=== PATIENT | male | born 1990 | race Caucasian/White ===

== ENCOUNTER 2022-03-15 17:43 | Emergency (ER) | payer OTHER, SELFPAY ==
--- NOTE | 2022-03-15 17:50 | XRR_ITS ---
PROCEDURE INFORMATION: Exam: XR Sacrum and Coccyx, 2 or More Views Exam date and time: 03/15/2022 6:08 PM Age: 31 years old Clinical indication: Pain in coccyx area; Patient HX: Blunt trauma falling xseveral days; Additional info: Tailbone pain TECHNIQUE: Imaging protocol: XR of the sacrum and coccyx, 2 or more views. COMPARISON: No relevant prior studies available. FINDINGS: Bones/joints: Normal. No acute fracture. Soft tissues: Normal. XR/XR sacrum coccyx min 2V [id number] IMPRESSION: No acute findings.
[2022-03-15 18:31] VITALS: BP 124/78; PULSE 84; RESP 16; TEMP 36.7; O2SAT 96; BMI 28.1
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
[2022-03-15 19:17] VITALS: BP 124/78; PULSE 84; RESP 16; TEMP 36.7; O2SAT 96
[2022-03-15] MEDS: HYDROcodone-acetaminophen 7.5-325 mg Tablet 1 TAB PO (19:28)
== END 2022-03-15 19:30 | disposition home or self-care (01) ==
PROVIDERS: Emergency Provider Physician Assistant
DX: S30.0XXA Contusion of lower back and pelvis, initial encounter (principal); W16.622A Jumping or diving into natural body of water striking bottom causing other injury, initial encounter
CPT/HCPCS: 72220; 99283

== ENCOUNTER 2022-05-29 12:03 | Emergency (ER) | payer OTHER, SELFPAY ==
[2022-05-29 12:08] VITALS: BP 145/89; PULSE 61; RESP 18; TEMP 36.7; O2SAT 96; BMI 28.7
--- NOTE | 2022-05-29 12:28 | XRR_ITS ---
PROCEDURE INFORMATION: Exam: XR Right Shoulder Exam date and time: 05/29/2022 12:48 PM Age: 31 years old Clinical indication: Pain; Shoulder; Right; Additional info: Right shoulder pain TECHNIQUE: Imaging protocol: Radiologic exam of the Right shoulder. Views: 2 or more views. COMPARISON: No relevant prior studies available. FINDINGS: Bones/joints: Normal. Soft tissues: Normal. XR/XR shoulder RT min 2V* [id number] IMPRESSION: No acute findings.
--- NOTE | 2022-05-29 12:54 | W.ED.EXTPRO ---
Documented by User: FREDY Urban 05/29/22 13:29 HPI - Extremity Problem General: Chief complaint: Extremity Injury, Upper Stated complaint: hurt shoulder on the right Time Seen by Provider: 05/29/22 12:21 History of Present Illness: Patient is in today for right-sided shoulder pain. He reports that 2 weeks ago his right shoulder started hurting after he had had a crick in his neck on the left side. He reports that he has had no injury, trauma to the right shoulder. He reports that it got better for about a week and a half and now it is hurting to the point that he is nauseated. He reports that it hurts worse when he is standing upright in the arm is dangling down. He reports that when the arm is supported it feels better. Associated symptoms: Deny chest pain or fever(s) Review of Systems Const: Denies: fever(s) or chills Card: Denies: chest pain or palpitations Resp: Denies: dyspnea Musc: Reports: joint pain (Right shoulder) [facility] ED PFSH: Medical History No pertinent family history Surgical History No pertinent past surgical history Physical Exam Const: COMMON NORMALS: no acute distress, patient oriented x3 and alert Resp: COMMON NORMALS: normal respiratory effort and No use of accessory muscles Extremity: OTHER: There is some mild tenderness to palpation glenohumeral joint area on the right shoulder. This does reproduce pain complaint. No obvious bony or soft tissue deformity appreciated. Patient has lateral abduction intact. Patient is able to perform soda can test without eliciting pain. Patient has posterior reach. With arms extended frontal patient is unable to raise arms above shoulder height on the right side without assistance of his other arm. CSM within normal limits to distal right arm. Neuro: COMMON NORMALS: patient oriented x3 SENSORIUM/ORIENTATION: Yes alert Course Vital Signs: Vital signs: Vital Signs Temperature 98.1 F 05/29/22 12:08 Pulse Rate 61 05/29/22 12:08 Respiratory Rate 18 05/29/22 12:08 Blood Pressure 145/89 05/29/22 12:08 Pulse Oximetry 96 05/29/22 12:08 Oxygen Delivery Me thod 05/29/22 12:08 MDM - Extremity (Nontraumatic) Medical Decision Making 31-year-old male with 2-week duration of right shoulder pain without acute injury or trauma. He has not seen a primary care provider. He has not had other evaluation of the shoulder per him. X-ray done. X-ray showed no acute findings. We will encourage patient to follow-up with primary care provider I will send a note to case management to help patient establish primary care provider. Encourage conservative treatment at home including ice, rest, elevation. Gentle pendulum swings. No lifting for the next few days to allow the shoulder to rest. Return to the ER as needed for new or worsening symptoms. Patient is frustrated however agreeable to following with PCP. Patient is requesting narcotic pain medication. Advised him that NSAIDs are more appropriate to help treat this type of musculoskeletal injury. Patient declined Toradol injection at this time Lab Data Radiology Impressions Shoulder X-Ray 05/29/22 12:28 IMPRESSION: No acute findings. Discharge Plan Discharge Patient Disposition: Home Clinical Impression: Right shoulder pain Condition: Stable Prescriptions: No Action ibuprofen 800 mg tablet 800 mg PO Q8H PRN (Reason: pain) Qty: 30 0RF Discharge Orders: Discharge ED (Routine); Ordered 05/29/22 Ordered By: Noemi Coronel Discharge Diet: Usual diet Discharge Activity: Limit activity as instructed Patient Instructions: Shoulder Sprain (ED) Activity Restrictions/Additional Instructions: Your x-rays did not show any acute fractures or injuries to the bones in your shoulder films. I recommend conservative treatment at home including ice the area to help with pain, rest the shoulder which means no lifting for a couple of days. You may use Tylenol Motrin alternating as needed for pain. Follow-up with a primary care provider. I put in an order to case management to help you establish a primary care provider. The primary care provider can help you continue to monitor the shoulder and determine if any further evaluation by specialist is needed at that time. Return to the ER sooner as needed. Stand Alone Forms: Work/School Release Coding Level of Care Code ED Senior Actuarial Analyst for [employer] Exam Expanded Problem Focused Documented by User: Travis Pal DO 05/30/22 07:49 HPI - Extremity Problem General: Chief complaint: Extremity Injury, Upper Stated complaint: hurt shoulder on the right Time Seen by Provider: 05/29/22 12:21 [facility] ED PFSH: Medical History No pertinent family history Surgical History No pertinent past surgical history Course Vital Signs: Vital signs: Vital Signs Temperature 98.1 F 05/29/22 12:08 Pulse Rate 61 05/29/22 12:08 Respiratory Rate 18 05/29/22 12:08 Blood Pressure 145/89 05/29/22 12:08 Pulse Oximetry 96 05/29/22 12:08 Oxygen Delivery Me thod 05/29/22 12:08 MDM - Extremity (Nontraumatic) Medical Decision Making 31-year-old male with 2-week duration of right shoulder pain without acute injury or trauma. He has not seen a primary care provider. He has not had other evaluation of the shoulder per him. X-ray done. X-ray showed no acute findings. We will encourage patient to follow-up with primary care provider I will send a note to case management to help patient establish primary care provider. Encourage conservative treatment at home including ice, rest, elevation. Gentle pendulum swings. No lifting for the next few days to allow the shoulder to rest. Return to the ER as needed for new or worsening symptoms. Patient is frustrated however agreeable to following with PCP. Patient is requesting narcotic pain medication. Advised him that NSAIDs are more appropriate to help treat this type of musculoskeletal injury. Patient declined Toradol injection at this time Chart reviewed and patient discussed with midlevel. Agree with assessment and plan. Lab Data Radiology Impressions Shoulder X-Ray 05/29/22 12:28 IMPRESSION: No acute findings. Discharge Plan Discharge Patient Disposition: Home Clinical Impression: Right shoulder pain Condition: Stable Prescriptions: No Action ibuprofen 800 mg tablet 800 mg PO Q8H PRN (Reason: pain) Qty: 30 0RF Discharge Orders: Discharge ED (Routine); Ordered 11/03/22 Ordered By: Noemi Coronel Discharge Diet: Usual diet Discharge Activity: Limit activity as instructed Patient Instructions: Shoulder Sprain (ED) Activity Restrictions/Additional Instructions: Your x-rays did not show any acute fractures or injuries to the bones in your shoulder films. I recommend conservative treatment at home including ice the area to help with pain, rest the shoulder which means no lifting for a couple of days. You may use Tylenol Motrin alternating as needed for pain. Follow-up with a primary care provider. I put in an order to case management to help you establish a primary care provider. The primary care provider can help you continue to monitor the shoulder and determine if any further evaluation by specialist is needed at that time. Return to the ER sooner as needed. Stand Alone Forms: Work/School Release Coding Level of Care Code ED Senior Actuarial Analyst for [employer] Exam Expanded Problem Focused
--- NOTE | 2022-05-29 15:22 | DCPLANNER ---
manager mechanical had message to speak with patient about getting established with a primary care physician. manager mechanical called phone number [phone], a recording came over the phone and stated that this phone line has been placed out of business. manager mechanical unable to speak with patient or leave a voicemail for patient.
== END 2022-05-29 13:33 | disposition home or self-care (01) ==
PROVIDERS: Emergency Provider Nurse Practitioner Family
DX: M25.511 Pain in right shoulder (principal)
CPT/HCPCS: 73030; 99283

== ENCOUNTER 2023-08-08 09:15 | Emergency (ER) | payer MEDICAID, SELFPAY ==
[2023-08-08 09:41] VITALS: BP 167/113; PULSE 84; RESP 16; TEMP 36.4; O2SAT 97
--- NOTE | 2023-08-08 10:04 | ED_ITS ---
HPI - Dental/Oral General: Chief complaint: Dental/Oral Stated complaint: right side tooth pain Time Seen by Provider: 08/08/23 09:21 History of Present Illness: 32-year-old male presents emergency room with complaint of dental pain in his right posterior mandibular molar has severe pain he had a filling placed and there is very rough and irregular severe sharp pain he did use some Tylenol 3 that the dentist had given him that still causing severe pain he has a follow-up appointment with a dentist. He has not had any fever sweats or chills pain is throbbing but he does not notice any swelling or drainage MD Complaint: tooth pain Associated symptoms: Denies fever(s) Review of Systems Const: Denies: fever(s) or chills Card: Denies: chest pain Resp: Denies: dyspnea GI: Denies: abdominal pain : Denies: dysuria, urinary frequency or urinary urgency Musc: Denies: neck pain or back pain Skin/Breast: Denies: rash PFS ED PFSH: Medical History No pertinent family history Surgical History No pertinent past surgical history Physical Exam Const: COMMON NORMALS: no acute distress GENERAL APPEARANCE: cooperative and comfortable ORIENTATION/CONSCIOUSNESS: Yes awake, Yes oriented to person, Yes oriented to place and Yes oriented to time HENMT: COMMON NORMALS: normocephalic, atraumatic and hearing grossly normal bilaterally HEAD & SCALP: normocephalic and atraumatic OTHER: Right mandibular posterior molar lateral posterior portion of the molar is fractured off. Could not visualize if there is exposed pulp. No gum swelling or drainage Resp: COMMON NORMALS: normal respiratory effort, No retractions, No use of accessory muscles and clear to auscultation bilaterally AUSCULTATION: clear to auscultation bilaterally Cardio: COMMON NORMALS: regular rate, regular rhythm and No murmurs present (Cardio) RATE: regular rate RHYTHM: regular rhythm Extremity: COMMON NORMALS: normal to inspection, capillary refill normal, no clubbing, cyanosis or edema, no calf tenderness and no pedal edema Neuro: SENSORIUM/ORIENTATION: Yes oriented to person, Yes oriented to place and Yes oriented to time Skin: COMMON NORMALS: no rashes or lesions noted GENERAL SKIN EXAM: no rashes or lesions noted Course Vital Signs: Vital signs: Vital Signs Temperature 97.6 F 08/08/23 09:41 Pulse Rate 75 08/08/23 10:15 Respiratory Rate 16 08/08/23 09:41 Blood Pressure 167/113 08/08/23 09:41 Pulse Oximetry 98 08/08/23 10:15 Oxygen Delivery Me thod Room Air 08/08/23 09:41 MDM - Dental/Oral Medical Decision Making On exam is a fracture of the tooth in the area patient is complaining of pain there is no scalp swelling I think the pain is just from pulp exposure there is no sign of abscess no drainage from use of dental wax to protect the pulp. Also given tramadol to use as needed follow-up with dentist for definitive care Medical Records I reviewed the patient's medical records. Lab Data I reviewed the patient's lab results. No radiology studies performed this visit Discharge Plan Discharge Patient Disposition: Home Clinical Impression: Dental caries, Toothache Condition: Stable Prescriptions: New tramadol 50 mg tablet 50 mg PO Q6H PRN (Reason: pain) Qty: 10 0RF No Action ibuprofen 800 mg tablet 800 mg PO Q8H PRN (Reason: pain) Qty: 30 0RF Discharge Orders: Discharge ED (Routine); Ordered 08/08/23 Ordered By: Travis Pal Referrals: Rudolph Thompson MD [Primary Care Provider] - Discharge Diet: Usual diet Discharge Activity: Increase activity as tolerated Patient Instructions: Opioid Safety, Pain Management Activity Restrictions/Additional Instructions: Thank you for choosing [facility] for your healthcare needs today. Please realize this is an emergency room and that we are providing you with a medical screening exam and this may not be complete and all inclusive of all the testing and or work up that you may need to determine your ailment or severity of your illness. It is very important that you follow up as instructed or that you return to the Emergency Department should you have concerns or if your condition changes or worsens in any way. Follow-up with a dentist as soon as you are able. Coding Level of Care Code ED Service Station Attendant for [employer]
[2023-08-08 10:15] VITALS: PULSE 75; O2SAT 98
== END 2023-08-08 10:17 | disposition home or self-care (01) ==
PROVIDERS: Emergency Provider Family Medicine; PCP Family Medicine
DX: K02.9 Dental caries, unspecified (principal); K08.89 Other specified disorders of teeth and supporting structures
CPT/HCPCS: 99283

== ENCOUNTER 2023-10-11 13:21 | Emergency (ER) | payer MEDICAID, SELFPAY ==
[2023-10-11 13:25] VITALS: BP 156/108; PULSE 82; RESP 18; TEMP 36.4; O2SAT 96; BMI 33.7
--- NOTE | 2023-10-11 13:29 | W.ED.DENTAL ---
HPI - Dental/Oral General: Chief complaint: Dental/Oral Stated complaint: tooth pain Time Seen by Provider: 10/11/23 13:26 History of Present Illness: 33-year-old male patient comes in today with left upper jaw pain with pain radiating to the left ear. Patient has some dental problems and is awaiting a root canal which is supposed to be done on the of this month. Patient has been unable to get comfortable and reports difficulty sleeping for the last 3 days. No obvious swelling is noted to the face. Review of Systems General: Reports: 10 or more systems reviewed and unremarkable except in HPI and below ENMT: Reports: dental pain [facility] ED PFSH: Medical History No pertinent family history Surgical History No pertinent past surgical history Physical Exam Const: COMMON NORMALS: alert HENMT: COMMON NORMALS: normocephalic HEAD & SCALP: normocephalic TEETH & GINGIVA: Yes abnormal tooth and associated gingiva (red gingivae, tenderness noted to the molar of the left upper jaw) Neck/C-Spine: COMMON NORMALS: full ROM Resp: COMMON NORMALS: normal respiratory effort Cardio: COMMON NORMALS: regular rate RATE: regular rate Extremity: COMMON NORMALS: normal to inspection Neuro: SENSORIUM/ORIENTATION: Yes alert Skin: COMMON NORMALS: turgor normal GENERAL SKIN EXAM: turgor normal Course Vital Signs: Vital signs: Vital Signs Temperature 97.5 F L 10/11/23 13:25 Pulse Rate 82 10/11/23 13:25 Respiratory Rate 18 10/11/23 13:25 Blood Pressure 156/108 10/11/23 13:25 Pulse Oximetry 96 10/11/23 13:25 Oxygen Delivery Me thod Room Air 10/11/23 13:25 MDM - Dental/Oral Medical Decision Making 33-year-old male patient comes in today for complaints of gingival tenderness and redness to left upper jaw in the molar area. No significant swelling is noted. Patient has had repair noted to the 2. Patient states that he had seen the dentist and is supposed to be getting a root canal done on the tooth. Differential diagnosis includes dental abscess, dental pain, dental caries. No signs of serious illness. Patient was covered with clindamycin 300 mg 3 times daily for dental infection. Patient was written for hydrocodone No. 7 tablets to help with pain. Patient was also written for some 800 mg ibuprofen for better inflammation control. Patient reports understanding of care plan and need for follow-up with dentist for definitive care. No radiology studies performed this visit Discharge Plan Discharge Patient Disposition: Home Clinical Impression: Toothache Condition: Stable Prescriptions: New clindamycin HCl 300 mg capsule 300 mg PO TID 7 Days Qty: 21 0RF hydrocodone-acetaminophen 5-325 mg tablet 1 tab PO Q6H PRN (Reason: pain) Qty: 7 0RF Continued ibuprofen 800 mg tablet 800 mg PO Q8H PRN (Reason: pain) Qty: 30 0RF Discontinued tramadol 50 mg tablet 50 mg PO Q6H PRN (Reason: pain) Qty: 10 0RF Discharge Orders: Discharge ED (Routine); Ordered 10/11/23 Ordered By: Lio Davison Referrals: Rudolph Thompson MD [Primary Care Provider] - Discharge Diet: Usual diet Discharge Activity: Resume usual activity Patient Instructions: Toothache (ED), Opioid Safety Activity Restrictions/Additional Instructions: Home and rest. Use ice packs to help with pain. Take antibiotics as directed. Drink plenty of water with medication. Do not use hydrocodone you may put yourself or others at risk with operating vehicles or equipment. Follow-up with primary care in 1 week for recheck. Coding Level of Care Code ED Well Logging Captain for [employer]
== END 2023-10-11 13:45 | disposition home or self-care (01) ==
PROVIDERS: Emergency Provider Nurse Practitioner Family; PCP Family Medicine
DX: K08.89 Other specified disorders of teeth and supporting structures (principal)
CPT/HCPCS: 99283